=== PATIENT | female | born 1965 | race Caucasian/White ===

== ENCOUNTER 2019-02-25 15:45 | Outpatient (REF) | payer SELFPAY ==
[2019-02-25 22:19] LABS: TSH (W/Ref FT4) 0.68 uIU/mL (0.36-3.74)
== END 2019-02-25 16:05 ==
LOC: NCHCN 15:45
PROVIDERS: Visit Provider Nurse Practitioner Family
DX: R00.2 Palpitations (principal)
CPT/HCPCS: 84443

== ENCOUNTER 2020-01-28 20:47 | Outpatient (REF) | payer SELFPAY ==
[2020-01-28 20:54] LABS: Calculated LDL 84 mg/dL (<100); Cholesterol 191 mg/dL (<200); HDL Cholesterol 91 mg/dL (40-60); Triglyceride 81 mg/dL (<150)
[2020-01-28 21:36] LABS: Hemoglobin A1C 5.3 % (3.8-5.6)
== END 2020-01-28 21:07 ==
LOC: NCHCN 20:47
PROVIDERS: Visit Provider Nurse Practitioner Family
DX: E03.9 Hypothyroidism, unspecified (principal); N39.3 Stress incontinence (female) (male); F32.9 Major depressive disorder, single episode, unspecified; J31.0 Chronic rhinitis; G43.109 Migraine with aura, not intractable, without status migrainosus; R73.03 Prediabetes
CPT/HCPCS: 80061; 83036; 84443

== ENCOUNTER 2020-11-09 12:44 | Outpatient (REF) | payer SELFPAY ==
[2020-11-09 22:05] LABS: TSH (W/Ref FT4) 1.42 uIU/mL (0.36-3.74)
== END 2020-11-09 12:45 | disposition home or self-care (01) ==
LOC: NCHCN 12:44
DX: E03.9 Hypothyroidism, unspecified (principal); F32.9 Major depressive disorder, single episode, unspecified
CPT/HCPCS: 84443

== ENCOUNTER 2021-04-19 14:14 | Outpatient (REF) | payer OTHER, SELFPAY ==
[2021-04-21 10:53] LABS: COVID-19 RT-PCR UVMMC Result Negative (Negative)
== END 2021-04-19 14:15 | disposition home or self-care (01) ==
LOC: LBN 14:14
PROVIDERS: Visit Provider Physician Assistant Medical
DX: Z20.822 Contact with and (suspected) exposure to COVID-19 (principal); J06.9 Acute upper respiratory infection, unspecified
CPT/HCPCS: U0003

== ENCOUNTER 2021-06-09 00:54 | Outpatient (CLI) | payer OTHER, SELFPAY ==
--- NOTE | 2021-06-09 | DI.MAMMO_ITS ---
Exam(s) MAMMO SCREENING EXAM: MAMMO SCREENING CLINICAL HISTORY: SCREENING, Z12.31. TECHNIQUE: Bilateral full field digital CC and MLO mammographic images were obtained with 3D tomosyn thesis and utilizing computer aided detection (CAD). COMPARISON: Prior mammograms performed in 2016, that being the only prior mammogram in our PACS FINDINGS: The fibroglandular tissue pattern is again noted be moderately dense, this decreasing the sensitivity of the mammogram for finding hidden underlying lesions No new obvious masses nor malignant-appearing microcalcification groups in either breast There is no significant architectural distortion nor skin thickening-retraction. IMPRESSION: Dense bilateral fibroglandular tissue. No obvious radiographic evidence of malignancy. BI-RADS Category 1 - Negative Breast Density - Category C - Heterogeneously dense Breast density Category C or D implies that the patient has dense breast tissue. Dense breast tissue can make it harder to find cancer on a mammogram. Dense breast tissue is also associated with an incr eased risk of breast cancer. This information about the result of the mammogram report was provided to the patient to raise their awareness. Use this report when you speak with the patient about their risks for breast cancer, which includes their family history. At that time, you may recommend additional screening tests (Ultrasoun d or MRI) as these tests may add significant information. A negative radiographic report should not delay biopsy if a dominant or clinically suspicious mass is present. Up to ten percent of cancers are not identified on mammography. A negative report may reinforce clinical impression. Adenosis and dense breasts may obscure an underlying neoplasm. False positive reports average 6 to 10%. Patient will receive a letter notifying them of these results.
== END 2021-06-09 01:14 ==
PROVIDERS: Visit Provider Nurse Practitioner Family
DX: Z12.31 Encounter for screening mammogram for malignant neoplasm of breast (principal); R92.8 Other abnormal and inconclusive findings on diagnostic imaging of breast
CPT/HCPCS: 77063; 77067

== ENCOUNTER 2022-02-20 15:00 | Outpatient (REF) | payer OTHER, SELFPAY ==
[2022-02-20 15:07] LABS: HCT 40.3 % (36.0-46.0); HGB 13.1 g/dL (11.2-15.7); MCH 30.1 pg (27.0-33.0); MCHC 32.5 % (32.0-36.0); MCV 93 fL (80-95); MPV 11.1 fL (8.0-11.0); Platelet Count 299 10^3/uL (130-400); RBC 4.35 10^6/uL (3.93-5.22); RDW 12.3 % (11.7-14.6); RDW-SD 42.3 fL; WBC 4.74 10^3/uL (4.4-10.8)
[2022-02-20 15:29] LABS: ALT 23 U/L (14-59); AST 19 U/L (15-37); Albumin 3.7 g/dL (3.4-5.0); Alkaline Phosphatase 89 U/L (46-116); Anion Gap 11.1 mmol/L (3-11); BUN 17 mg/dL (7-18); Bilirubin, Total 0.2 mg/dL (0.2-1.0); CO2 25.9 mmol/L (21.0-32.0); CREATININE 1.1 mg/dL (0.55-1.02); Calcium 9.1 mg/dL (8.5-10.1); Chloride 107 mmol/L (98-107); Glucose 90 mg/dL (74-106); Potassium 4.3 mmol/L (3.5-5.1); Sodium 144 mmol/L (136-145); TSH (W/Ref FT4) 1.51 uIU/mL (0.36-3.74); Total Protein 7.2 g/dL (6.4-8.2)
== END 2022-02-20 15:01 | disposition home or self-care (01) ==
LOC: NCHCN 15:00
PROVIDERS: Visit Provider Nurse Practitioner Family
DX: Z00.00 Encounter for general adult medical examination without abnormal findings (principal); E03.9 Hypothyroidism, unspecified
CPT/HCPCS: 80053; 85027; 84443

== ENCOUNTER 2022-12-22 16:13 | Emergency (ER) | payer SELFPAY ==
[2022-12-22 16:19] VITALS: BP 116/68; PULSE 92; RESP 18; TEMP 37.1; O2SAT 99
--- NOTE | 2022-12-22 17:15 | DI.RAD_ITS ---
Exam(s) XR TIB/FIB RT EXAM: XR TIB/FIB RT CLINICAL HISTORY: pain. TECHNIQUE: 2D digital imaging was performed. COMPARISON: No exams were available for comparison FINDINGS: 3 views There is no evidence of tibial fracture. However, there is a fracture in the proximal fibula minimal angulation. IMPRESSION: Mildly angulated fracture in the proximal diaphysis of the fibula. DATA REPOSITORY: RADIATION DOSE DELIVERED:
[2022-12-22] MEDS: Acetaminophen 500 MG TAB 1000 MG PO (17:30)
--- NOTE | 2022-12-22 17:50 | DI.VRAD_ITS ---
PROCEDURE INFORMATION: Exam: XR Right Tibia and Fibula Exam date and time: 12/22/2022 17:41 Age: 57 years old Clinical indication: Other: Pain TECHNIQUE: Imaging protocol: Radiologic exam of the right tibia and fibula. Views: 2 views. COMPARISON: No relevant prior studies available. FINDINGS: Bones/joints: Acute fracture of the proximal fibular diaphysis with mild apex posterior angulation. Soft tissues: Unremarkable. IMPRESSION: Acute fracture of the proximal fibular diaphysis with mild apex posterior angulation. Dictated and Authenticated by: Jacque Tsai MD. Ordering:JAY Black MD
--- NOTE | 2022-12-22 17:55 | ED.GENADUL_ITS ---
Discharge Plan Disposition Patient Disposition: Home Condition: Stable Discharge Details Clinical Impression: Closed right fibular fracture Primary Care Provider: Ashley Vidal ED Provider: Wayne Colin Home Meds and New Rx's Prescriptions: Continued levothyroxine 88 MCG tablet 88 mcg PO DAILY Discharge Instructions Instructions: Leg Fracture (ED) Additional Instructions: You broke the bone in the leg called the fibula call orthopedics on Saturday to arrange follow up if you feel more ill, have severe worsening pain return to the emergency department Medical Decision Making 57 yo female comes in with right leg pain after she states she slipped while gardening and landed on the right lower leg. Denies hitting her head, no loc, no vomiting. She has full rom of the hip, knee and ankle. No knee or ankle tenderness nor any femur or hip tenderness. She is tender on the right lateral proximal calf, no visible deformity, no tenderness in the ankle with intact sensation and pulses. Suspect contusion vs sprain. She has full rom of all her joints so doubt achilles tendon or quadriceps rupture xray confirms fracture of proximal fibula, placed in posterior leg splint, will have her f/u with ortho, return precautions given Differential Diagnosis Differential Diagnosis: fracture, contusion Imaging Data Radiologic Study: Attestation: I personally reviewed and interpreted this imaging study as follows: Imaging: X-Ray Radiologist's impression: Exam: XR Right Tibia and Fibula Exam date and time: 12/22/2022 17:41 Age: 57 years old Clinical indication: Other: Pain TECHNIQUE: Imaging protocol: Radiologic exam of the right tibia and fibula. Views: 2 views. COMPARISON: No relevant prior studies available. FINDINGS: Bones/joints: Acute fracture of the proximal fibular diaphysis with mild apex posterior angulation. Soft tissues: Unremarkable. IMPRESSION: Acute fracture of the proximal fibular diaphysis with mild apex posterior angulation. HPI General Date/Time Provider Initiated Documentation: 12/22/22 16:32 . Limitations to Documentation: no limitations . Information obtained by: patient . History of Present Illness 57 year old F presents to the emergency department with the chief complaint of right leg pain, described as moderate, Quality is described as aching, Patient started experiencing this hour(s) (2) and it has been constant. No relieving factors improve symptom(s), and Rest improves symptom(s), Movement worsens symptoms . Patient notes no other symptoms.. Patient did receive the following treatments prior to arrival, none Related Data Home Medications Medication Instructions Recorded Confirmed levothyroxine 88 mcg tablet 88 mcg PO DAILY 09/24/15 09/24/15 Allergies Allergy/AdvReac Type Severity Reaction Status Date / Time No Known Allergies Allergy Unverified 01/31/18 13:48 General Stated Complaint: Orthopedic KALI: 3 Review of Systems All systems reviewed & are unremarkable except as noted in HPI and below Constitutional Constitutional: Denies chills, Denies fever(s) and Denies weakness Cardiovascular Cardiovascular: Denies chest pain and Denies dyspnea Respiratory Respiratory: Denies cough and Denies dyspnea Gastrointestinal Gastrointestinal: Denies abdominal pain, Denies nausea and Denies vomiting Musculoskeletal Musculoskeletal: Denies joint swelling Neurologic Neurologic: Denies weakness PFSH All Active Problems (Updated 12/22/22 @ 18:27 by Wayne Colin MD) Closed right fibular fracture (Acute) Medical History (Updated 12/22/22 @ 18:27 by Wayne Colin MD) Depression Hypothyroid Family History (Updated 01/31/18 @ 14:54 by Elham Briones) Other Family hx of colon cancer Social History Smoking/Tobacco Use Status: Former Tobacco Use Smoking risk assessment performed?: Yes Drug use: Never Exam Const General: no acute distress Orientation: alert HENMT Head: normal to inspection Ears: external ears normal General nose exam: external nose normal Mouth: moist mucous membranes Eyes General: appearance normal, both eyes and all related structures Neck Neck: normal visual inspection Resp Effort & Inspection: normal respiratory effort and able to speak in complete sentences Cardio Rate: regular rate Skin General skin exam: no rashes or lesions noted Neuro General: patient alert and patient oriented x3 Extrem General: normal to inspection, full ROM and capillary refill normal Psych Mental Status: mental status grossly normal Course Vital Signs Vital signs: Vital Signs Temperature 37.1 C 12/22/22 16:19 Pulse 92 H 12/22/22 16:19 Respiratory Rate 18 12/22/22 16:19 Blood Pressure 116/68 12/22/22 16:19 Pulse Oximetry 99 12/22/22 16:19 Temperature 37.1 C 12/22/22 16:19 Temperature Source Skin 12/22/22 16:19 Pulse 92 H 12/22/22 16:19 Respiratory Rate 18 12/22/22 16:19 Blood Pressure 116/68 12/22/22 16:19 Blood Pressure Position Sitting 12/22/22 16:19 Pulse Oximetry 99 12/22/22 16:19 Oxygen Delivery Method Room Air 12/22/22 16:19 Oxygen Flow Rate 0 12/22/22 16:19 Pain Level 7 12/22/22 17:30
[2022-12-22 18:38] VITALS: BP 116/63; PULSE 82; TEMP 36.6; O2SAT 100
== END 2022-12-22 19:01 | disposition home or self-care (01) ==
PROVIDERS: Emergency Provider Emergency Medicine; PCP Nurse Practitioner Family
DX: S82.831A Other fracture of upper and lower end of right fibula, initial encounter for closed fracture (principal); W01.0XXA Fall on same level from slipping, tripping and stumbling without subsequent striking against object, initial encounter
CPT/HCPCS: 99283; 73590

== ENCOUNTER 2023-01-08 11:27 | Outpatient (CLI) | payer SELFPAY ==
--- NOTE | 2023-01-08 10:45 | DI.RAD_ITS ---
Exam(s) XR KNEE RT 2V AP,LAT EXAM: XR KNEE RT 2V AP,LAT CLINICAL HISTORY: F/U FRACTURE. TECHNIQUE: 2D digital imaging was performed. COMPARISON: CR,XR XR TIB/FIB RT from 12/22/2022 FINDINGS: Two views The fracture in the proximal diaphysis of the fibula is again noted. It exhibits mild angulation, sl ightly more so than previous. No other fractures identified. No knee joint effusion. Tibial platea u unremarkable IMPRESSION: DATA REPOSITORY: RADIATION DOSE DELIVERED:
== END 2023-01-08 11:28 | disposition home or self-care (01) ==
LOC: DIORS 11:28
PROVIDERS: PCP Nurse Practitioner Family; Referring Provider Nurse Practitioner Family; Visit Provider Student in an Organized Health Care Education/Training Program
DX: S82.831D Other fracture of upper and lower end of right fibula, subsequent encounter for closed fracture with routine healing (principal); X58.XXXD Exposure to other specified factors, subsequent encounter
CPT/HCPCS: 73560

== ENCOUNTER 2023-02-26 15:22 | Outpatient (CLI) | payer SELFPAY ==
--- NOTE | 2023-02-26 15:00 | DI.RAD_ITS ---
Exam(s) XR KNEE RT 2V AP,LAT EXAM: XR KNEE RT 2V AP,LAT INDICATION: f/u PROX R FIB FX. COMPARISON: CR XR KNEE RT 2V AP,LAT from 01/08/2023 TECHNIQUE: 2D digital imaging was performed. Two views. FINDINGS: There has been no change in the alignment of the proximal fibular fracture. There is increased callu s formation around the fracture site. No new abnormalities are seen. DATA REPOSITORY: RADIATION DOSE DELIVERED:
== END 2023-02-26 15:23 | disposition home or self-care (01) ==
LOC: DIORS 15:22
PROVIDERS: PCP Nurse Practitioner Family; Referring Provider Nurse Practitioner Family; Visit Provider Student in an Organized Health Care Education/Training Program
DX: S82.831D Other fracture of upper and lower end of right fibula, subsequent encounter for closed fracture with routine healing (principal); X58.XXXD Exposure to other specified factors, subsequent encounter
CPT/HCPCS: 73560

== ENCOUNTER 2024-06-16 15:51 | Outpatient (REF) | payer SELFPAY ==
--- OUTSIDE RECORDS SUMMARY | 2024-06-16 15:55 | XMS_ITS | Encounter Summary ---
Author Organization [facility] Address [address] [place] [address] Care Team Providers Care Video Game Technician Name Role Phone Unknown, Provider Primary Care Provider Unava ilable Encounter Details Date Type Department Care Team (Late st Contact Info) Description 01/11/2009 Orders Only [facility] Laboratory Services - [facility] ([facility] [address] [place] [address] Dominique Cutler, CLINICAL TRANSPLANT COORDINATOR Social History Tobacco Use Types Packs/Day Years Used Date Smoking Tobacco: Never Assessed Comments Unknown Sex and Gender Information Value Date Recorded Sex Assigned at Not on file Legal Sex Female 18:45 EST Gender Identity Not on file Sexual Orientation Not on file documented as of this encounter Plan of Treatment Not on file documented as of this encounter Procedures Procedure Name Priority Date/Time Associated Diagnosis Comments HPV DETECTION, HIGH RISK TYPES Routine 01/11/2009 14:33 EDT CYTOPATHOLOGY Routine 01/11/2009 0:00 EDT documented in this encounter Results * HUMAN PAPILLOMA VIRUS DNA TEST (01/11/2009 14:33 EDT) Specimen Description Cervix, ThinPrep vial [facility] Result Negative for HPV types 16, 18, 31, 33, 35, 39, 45, 51, 52, 56, 58, 59, and 68. [facility] Report Status Final 01/20/2009 [facility] 01/11/2009 14:3 3 EDT 01/17/2009 14:33 EDT Dominique Cutler NP MICROBIOLOGY - GENERAL ORDERA BLES Final Result Performing Organization Address [facility]/State/ZIP Co de Phone Number [facility] [address] [place] [address] * CYTOPATHOLOGY (01/11/2009 0:00 EDT) Pathology Report: CYTOPATHOLOGY REPORT ? Reports generated via electronic interface contain original data; ? however they are lacking the format of the original report. ? Caution should be taken when reading/interpreti ng unformatted reports. ? Name: ? CHAMP SANDOVAL ? Accession #: ? [id number] ? : ? 1965 (Age: 43) ??F ?Collect Date: ? 01/11/2009 ? Location: ? [facility] ? Receive Date: ? 01/12/2009 ? Provider: ?DOMINIQUE M MORENA CLINICAL TRANSPLANT COORDINATOR ? Copy to: ? Specimen/Source: ?Pap Test, Cervix/Endocervix, ThinPrep Imaging System ? with manual evaluation ? Last Menstrual Period: ? 6/11/09 ? Other: ? HPVDX - HPV testing requested regardless of diagnosis on current ThinPrep Pap ?? test. ? SPECIMEN ADEQUACY ? Satisfactory for Evaluation ? - transformation zone component present ? - scant squamous epithelial component ? GENERAL CATEGORIZATION ? Negative for Intraepithelial Lesion or Malignancy ? Document reviewed and electronically signed by: ? Leeann Bharat, CT(ASCP) ? Report Date: ??01/17/2009 11:14 ? End of Report ? [facility] 01/11/2009 01/12/2009 us Dominique Cutler CLINICAL TRANSPLANT COORDINATOR PATHOLOGY ORDERABLES Final Re sult [facility] [address] [place] [address] documented in this encounter Visit Diagnoses Not on filedocumented in this encounter Care Teams Video Game Technician Relationship Specialty Start Date End Date Unknown, Provider, PCP - General 01/12/09 02/24/09 documented as of this encounter
--- OUTSIDE RECORDS SUMMARY | 2024-06-16 15:55 | XMS_ITS | Encounter Summary ---
Author Organization [facility] Address [address] [place] [address] Care Team Providers Care Search Coordinator Name Role Phone Jas Montiel MD Primary Care Provider [phone] Encounter Details Date Type Department Care Team (Late st Contact Info) Description 04/20/2021 Lab Requisition [facility] Pathology & Laboratory Medicine - [address] [address] Outr Resulting Lab, Provider Social History Tobacco Use Types Packs/Day Years [...] Procedure Name Priority Date/Time Associated Diagnosis Comments ZZCOVID-19 TEST [facility] PCR Today 04/19/2021 13:25 EDT COVID-19 TESTING Routine 04/19/2021 13:2 5 EDT documented in this encounter Results * COVID-19 TEST [facility] PCR (04/19/2021 13:25 EDT) Swab ENTIRE NASOPHARYNX / Unknown 04/19/2021 13:25 EDT 04/20/2021 15:46 EDT us Provider Outr Resulting Lab MICROBIOLOGY - GENER AL ORDERABLES Final Result [facility] [address] [place] [address] * COVID-19 TESTING (04/19/2021 13:25 EDT) COVID-19 rt-PCR Result Negative Negative 04/21/2021 10:47 EDT [facility] Comment: This test has not been FDA cleared or approved. This test has been authorized by FDA under an EUA for use by authorized laboratories. This test has been authorized only for detection of nucleic acid from 2019-nCoV, not for any other viruses or pathogens. This test is only authorized for the duration of the declaration that circumstances exist justifying the authorization of emergency use of in vitro diagnostic tests for detection and/or diagnosis of 2019-nCoV under section 564(b)(1) of Act, 21 U.S.C ?? 360bbb-3(b) (1), unless the authorization is terminated or revoked sooner. Negative results do not preclude 2019-nCoV infection and should not be used as the sole basis for treatment or other patient management decisions. Negative results must be combined with clinical observations, patient history, and epidemiological information. Testing was performed using the boo SARS-CoV-2 assay ([employer] on the Boo 6800 System Performing Lab Boo 6800 [facility] 04/21/2021 10:47 EDT [facility] Swab 04/19/2021 13:2 5 EDT 04/20/2021 15:46 EDT us Provider Outr Resulting Lab MICROBIOLOGY - GENER AL ORDERABLES Final Result [facility] [address] [place] [address] documented in this encounter Visit Diagnoses Not on filedocumented in this encounter Care Teams Search Coordinator Relationship Specialty Start Date End Date Jas Montiel MD [address] [place] [address] PCP - General 02/25/09 documented as of this encounter
--- OUTSIDE RECORDS SUMMARY | 2024-06-16 15:55 | XMS_ITS | Encounter Summary ---
Author Organization [facility] Address [address] [place] [address] Care Team Providers Care Ice Scraper Name Role Phone Unknown, Provider Primary Care Provider Unava ilable Encounter Details Date Type Department Care Team (Late st Contact Info) Description 02/23/2009 Orders Only [facility] Laboratory Services [facility] ([facility]) [address] [place] [address] Dominique Cutler, WATERSHED MANAGER Social History Tobacco Use Types Packs/Day Years [...] Procedure Name Priority Date/Time Associated Diagnosis Comments SURGICAL PATHOLOGY Routine 02/23/2009 0:00 EDT documented in this encounter Results * SURGICAL PATHOLOGY (02/23/2009 0:00 EDT) Pathology Report: SURGICAL PATHOLOGY REPORT ? Reports generated via electronic interface contain original data; ? however they are lacking the format of the original report. ? Caution should be taken when reading/interpreti ng unformatted reports. ? Name: ? JAIME, CHAMP ? Accession #: ? [id number] ? : ? 1965 (Age: 43) ??F ? Collect Date: ? 02/23/2009 ? Location: ? [facility] ? Receive Date: ? 02/24/2009 ? Provider: DOMINIQUE M MORENA WATERSHED MANAGER ? Copy to: JESSE ONEILL MD ? Final Pathologic Diagnosis: ? Endometrium, biopsy: ? - Secretory endometrium. ? Document reviewed and electronically signed by: ? TAMIKA MOUNT MD ? Report ??Date: 02/28/2009 15:12 ? By the signature above, the attending physician certifies that he/she has ? personally conducted a gross and/or microscopic examination of the described ? specimens and rendered or confirmed the above diagnosis. ? Specimen(s) Received: ? Endometrial bx ? Clinical History: ? Dysfunctional uterine bleeding; LMP: 01/03/09 ? Gross Description: ? Received in formalin labelled Jaime, Ale and endometrial bx are 2 ?? cc of gallagher-pink tissue fragments admixed with blood tinged mucus. ??The specimen ?? is submitted entirely in one cassette. ??(JOSE Crystal)/tikan ? End of Report ? [facility] 02/23/2009 02/24/2009 9:0 5 EDT us Dominique Cutler WATERSHED MANAGER PATHOLOGY ORDERABLES Final Re sult [facility] [address] [place] [address] documented in this encounter Visit Diagnoses Not on filedocumented in this encounter Care Teams Ice Scraper Relationship Specialty Start Date End Date Unknown, Provider, PCP - General 01/12/09 02/24/09 documented as of this encounter
--- OUTSIDE RECORDS SUMMARY | 2024-06-16 15:55 | XMS_ITS | Referral Summary ---
Author Organization [facility] Address [address] [place] [address] Care Team Providers Care Training Generalist Name Role Phone Jas Montiel MD Primary Care Provider [phone] Social History Tobacco Use Types Packs/Day Years Used Date Smoking Tobacco: Never Assessed Comments Unknown Sex and Gender Information Value Date Recorded Sex Assigned at Not on file Legal Sex Female 18:45 EST Gender Identity Not on file Sexual Orientation Not on file Plan of Treatment Not on file Care Teams Training Generalist Relationship Specialty Start Date End Date Jas Montiel MD [address] [place] [address] PCP - General 02/25/09
--- OUTSIDE RECORDS SUMMARY | 2024-06-16 15:55 | XMS_ITS | Encounter Summary ---
Author Organization [facility] Address [address] [place] [address] Care Team Providers Care Ruby On Rails Software Developer Name Role Phone Jas Montiel MD Primary Care Provider [phone] Encounter Details Date Type Department Care Team ([facility] st Contact Info) Description 01/31/2018 Results Only [facility] [phone] Courtney Briones MD [address] [place] [address] Social History Tobacco Use Types Packs/Day Years [...] Procedure Name Priority Date/Time Associated Diagnosis Comments PAP TEST- RESULT ONLY Routine 01/31/2018 0:00 EDT documented in this encounter Results * PAP TEST- RESULT ONLY (01/31/2018 0:00 EDT) Pathology Report: CYTOPATHOLOGY REPORT Reports generated via electronic interface contain original data; however they are lacking the format of the original report. Caution should be taken when reading/interpreti ng unformatted reports. Name: ? EDSON SANDOVAL ? Accession #: ? [id number] ? : ? 1965 (Age: 52) ??F ?Collect Date: ? 01/31/2018 ? Location: ? [facility] ? Receive Date: ? 02/03/2018 ? Provider: COURTNEY BRIONES MD Copy to: TAMIKA OLSON MD ? Final Report SPECIMEN ADEQUACY ? Satisfactory for Evaluation - transformation zone component present GENERAL CATEGORIZATION ? Negative for Intraepithelial Lesion or Malignancy ?? Menstrual/Pregnanc y Status: ??Post Menopausal Specimen/Source: ??Pap Test, Cervix, ThinPrep Imaging System with manual evaluation Document reviewed and electronically signed by: ? Maya Garcia, CT(ASCP) ? Report ??Date: 02/11/2018 10:53 HPV with Pap Test ? Date Ordered: ? 02/11/2018 ? Status: ?? Signed Out ?Date Complete: ? 02/13/2018 ? By: ??System Interface ? Date Reported: ? 02/13/2018 ? Interpretation RESULT: Negative for HPV. No E6 or E7 mRNA is detected from HPV types 16,18,31,33,35, 39,45,51,52,56,58, 59,66, and 68 by soft shoe dancer mediated amplification. Comments Document reviewed and electronically signed by: ? System Interface ? Report date: 02/13/2018 By the signature above, the attending physician certifies that he/she has personally conducted a gross and/or microscopic examination of the described specimens and rendered or confirmed the above diagnosis. End of Report [facility] 01/31/2018 02/03/2018 us Courtney Brioens MD PATHOLOGY ORDERABLES Final Resul t [facility] [address] [place] [address] documented in this encounter Visit Diagnoses Not on filedocumented in this encounter Care Teams Ruby On Rails Software Developer Relationship Specialty Start Date End Date Jas Montiel MD [address] [place] [address] PCP - General 02/25/09 documented as of this encounter
--- OUTSIDE RECORDS SUMMARY | 2024-06-16 15:55 | XMS_ITS | Clinical Summary ---
Author Organization [facility] Address [address] [place] [address] Care Team Providers Care Bag Filler Name Role Phone Jas Montiel MD Primary Care Provider [phone] Social History Tobacco Use Types Packs/Day Years Used Date Smoking Tobacco: Never Assessed Comments Unknown Sex and Gender Information Value Date Recorded Sex Assigned at Not on file Legal Sex Female 18:45 EST Gender Identity Not on file Sexual Orientation Not on file Plan of Treatment Health Maintenance Due Date Last Done Comments Hepatitis C Screen 1965 Hepatitis B Vaccine (1 of 3 - 19+ 3-dose series) 06/26 COVID-19 Vaccine ( season) 2024 Care Teams Bag Filler Relationship Specialty Start Date End Date Jas Montiel MD [address] [place] [address] PCP - General 02/25/09
[2024-06-16 22:00] LABS: TSH (W/Ref FT4) 4.67 uIU/mL (0.36-3.74)
[2024-06-16 22:26] LABS: FREE T4 0.98 ng/dL (0.76-1.46)
== END 2024-06-16 15:52 | disposition home or self-care (01) ==
LOC: NCHCN 15:51
PROVIDERS: PCP Nurse Practitioner Family; Visit Provider Nurse Practitioner Family
DX: E03.9 Hypothyroidism, unspecified (principal)
CPT/HCPCS: 84439; 84443

== ENCOUNTER 2024-11-10 17:34 | Outpatient (REF) | payer OTHER, SELFPAY ==
--- NOTE | 2024-11-10 16:15 | PAPFT_PTH ---
PATIENT: Ale Brown LOC: [facility]#:[id number] AGE/SX: 59/F ROOM: RE11/10/[address]: Ashley Vidal : 1965 BED: DIS: 11/10/2024 SPEC #: [id number] RECD: 11/11/24 12:56 STATUS: CHRIS REQ #: [id number] SILAS: 11/10/24 16:[address]: Ashley Vidal DEPT: [facility] Cytology RECD BY: Josie Alejo Tissues: 1 - CX/ENDOCX FOR PAP SMEARS Procedures: PAP THIN PREP/[facility] Screening HPV DNA PROBE Comments: [id number] (HPV 16 & 18/45)
== END 2024-11-10 17:35 | disposition home or self-care (01) ==
LOC: NCHCN 17:34
PROVIDERS: PCP Nurse Practitioner Family; Visit Provider Nurse Practitioner Family
DX: Z12.4 Encounter for screening for malignant neoplasm of cervix (principal)
CPT/HCPCS: 88142; 87624

== ENCOUNTER 2024-11-16 19:07 | Outpatient (REF) | payer OTHER, SELFPAY ==
[2024-11-16 15:03] LABS: HGB 13.7 g/dL (11.2-15.7); MCH 29.6 pg (27.0-33.0); MCHC 31.9 % (32.0-36.0); MCV 93 fL (80-95); MPV 11.5 fL (8.0-11.0); Platelet Count 297 10^3/uL (130-400); RBC 4.63 10^6/uL (3.93-5.22); RDW 11.9 % (11.7-14.6); RDW-SD 40.5 fL; WBC 5.55 10^3/uL (4.4-10.8)
[2024-11-16 15:44] LABS: ALT 24 U/L (14-59); AST 17 U/L (15-37); Albumin 3.9 g/dL (3.4-5.0); Alkaline Phosphatase 81 U/L (46-116); Anion Gap 9.6 mmol/L (3-11); BUN 21 mg/dL (7-18); Bilirubin, Total 0.5 mg/dL (0.2-1.0); CO2 25.4 mmol/L (21.0-32.0); CREATININE 1.1 mg/dL (0.55-1.02); Calcium 9.6 mg/dL (8.5-10.1); Calculated LDL 93 mg/dL (<100); Chloride 107 mmol/L (98-107); Cholesterol 191 mg/dL (<200); Estimated GFR 57.52 (mL/min/1.73m2); Glucose 112 mg/dL (74-106); HDL Cholesterol 77 mg/dL (>or=50); Potassium 4.5 mmol/L (3.5-5.1); Sodium 142 mmol/L (136-145); TSH (W/Ref FT4) 2.74 uIU/mL (0.36-3.74); Total Protein 7.1 g/dL (6.4-8.2); Triglyceride 109 mg/dL (<150)
== END 2024-11-16 19:08 | disposition home or self-care (01) ==
LOC: NCHCN 19:07
PROVIDERS: PCP Nurse Practitioner Family; Visit Provider Nurse Practitioner Family
DX: Z00.00 Encounter for general adult medical examination without abnormal findings (principal); E03.9 Hypothyroidism, unspecified
CPT/HCPCS: 80053; 80061; 85027; 84443

== ENCOUNTER 2024-12-04 00:43 | Outpatient (CLI) | payer OTHER, SELFPAY ==
--- NOTE | 2024-12-04 | DI.MAMMO_ITS ---
Exam(s) MAMMO SCREENING EXAM: MAMMO SCREENING CLINICAL HISTORY: SCREENING Z12.31. TECHNIQUE: Bilateral full field digital CC and MLO mammographic images were obtained with 3D tomosyn thesis and utilizing computer aided detection (CAD). COMPARISON: Prior mammograms dating back to 2016 were reviewed. FINDINGS: The fibroglandular tissue pattern is again noted be moderately dense, this somewhat decreasing the se nsitivity of the mammogram for finding hidden underlying lesions. No new right breast findings. Posteriorly in the left breast there is an asymmetric density measuring 11 x 7 mm and located 8 cm in from the nipple on the MLO view and 7 cm in from the nipple on the CC view. This was less evident o n the 2020 images but appears to have been evident on 2016 images. It may be slightly larger than pr evious. There are no malignant-appearing microcalcification groups in this region or elsewhere in either [address]. There is no significant architectural distortion nor skin thickening-retraction. IMPRESSION: 1. No radiographic evidence of malignancy in right breast. 2. Asymmetric density-possible nodule posteriorly in the left breast as described above. Spot compre ssion view and ultrasound recommended. BI-RADS Category 0 - Incomplete: Need additional imaging evaluation Breast Density - Category C - The breast are heterogeneously dense, which may obscure small masses. Breast density Category C or D implies that the patient has dense breast tissue. Dense breast tissue can make it harder to find cancer on a mammogram. Dense breast tissue is also associated with an incr eased risk of breast cancer. This information about the result of the mammogram report was provided to the patient to raise their awareness. Use this report when you speak with the patient about their risks for breast cancer, which includes their family history. At that time, you may recommend additional screening tests (Ultrasoun d or MRI) as these tests may add significant information. A negative radiographic report should not delay biopsy if a dominant or clinically suspicious mass is present. Up to ten percent of cancers are not identified on mammography. A negative report may reinforce clinical impression. Adenosis and dense breasts may obscure an underlying neoplasm. False positive reports average 6 to 10%. Patient will receive a letter notifying them of these results.
== END 2024-12-04 01:03 ==
LOC: DI 00:43
PROVIDERS: PCP Nurse Practitioner Family; Visit Provider Nurse Practitioner Family
DX: Z12.31 Encounter for screening mammogram for malignant neoplasm of breast (principal); R92.333 Mammographic heterogeneous density, bilateral breasts
CPT/HCPCS: 77063; 77067

== ENCOUNTER 2024-12-14 02:34 | Outpatient (CLI) | payer OTHER, SELFPAY ==
--- NOTE | 2024-12-14 | DI.MAMMO_ITS ---
Exam(s) MG MAMMO SCREEN CALL BACK UNI US BREAST LT COMPLETE EXAM: MG MAMMO SCREEN CALL BACK UNI CLINICAL HISTORY: R92.8 ABN mammo, Asymmetric density-possible nodule posteriorly LT breast,. TECHNIQUE: Craniocaudal and mediolateral oblique spot compression digital Mammography views of the l eftbreast with Tomosynthesis and left breast ultrasound. COMPARISON: MG Screening Bilat Mammo from 12/15/2015 MG MG MAMMO SCREENING from 06/09/2021 MG MG MAMMO SCREENING from 12/04/2024 US US BREAST LT COMPLETE from 12/14/2024 FINDINGS: Mammography/Tomosynthesis: Masses: Persistent ill-defined 1 cm mass in the posterior upper inner quadrant. Architectural Distortion: None seen. Microcalcifictions: No suspicious pleomorphic-type are seen. Skin Thickening/Nipple Retraction: None. Left breast US: Echotexture: Normal appearance of the glandular tissue. Shadowing: No suspicious foci. Cyst: None. Solid lesions: 10 x 10 by 11 millimeter hypoechoic ill-defined mass with posterior shadowing located in the 10 o'clock position 6 cm from the nipple. Ductal dilation: None. IMPRESSION: 1. Suspicious mass in the posterior upper inner quadrant of the left breast. 2. Biopsy recommended. 3. The findings were discussed with the patient on the date of the examination. Findings were called to Cecilia Jensen RN. BI-RADS Category 4 - Suspicious Abnormality: Biopsy should be considered Breast Density - Category C - The breast are heterogeneously dense, which may obscure small masses. Breast density Category C or D implies that the patient has dense breast tissue. Dense breast tissue can make it harder to find cancer on a mammogram. Dense breast tissue is also associated with an incr eased risk of breast cancer. This information about the result of the mammogram report was provided to the patient to raise their awareness. Use this report when you speak with the patient about their risks for breast cancer, which includes their family history. At that time, you may recommend additional screening tests (Ultrasoun d or MRI) as these tests may add significant information. A negative radiographic report should not delay biopsy if a dominant or clinically suspicious mass is present. Up to ten percent of cancers are not identified on mammography. A negative report may reinforce clinical impression. Adenosis and dense breasts may obscure an underlying neoplasm. False positive reports average 6 to 10%. Patient will receive a letter notifying them of these results.
== END 2024-12-14 02:54 ==
LOC: DI 02:34
PROVIDERS: PCP Nurse Practitioner Family; Visit Provider Nurse Practitioner Family
DX: Z12.31 Encounter for screening mammogram for malignant neoplasm of breast (principal); N63.22 Unspecified lump in the left breast, upper inner quadrant
CPT/HCPCS: 76642; 77063; 77067

== ENCOUNTER 2025-02-22 06:59 | Day surgery (SDC) | payer OTHER, SELFPAY ==
--- NOTE | 2025-02-21 12:30 | W.PM.DSUDISC ---
Date of service: 02/22/25 Discharge Plan Disposition Patient Disposition: Home Condition: Good Discharge Details Reason For Visit: Screening colonoscopy Attending Provider: Bob Caal Primary Care Provider: Ashley Vidal Home Meds and New Rx's Prescriptions: Continued levothyroxine 88 mcg tablet 100 mcg PO DAILY Discontinued bisacodyl [Dulcolax (bisacodyl)] 5 mg tablet,delayed release (DR/EC) 5 mg PO ONCE Qty: 4 0RF Rx Instructions: Take per colonoscopy instructions provided by ordering providers office polyethylene glycol 3350 17 gram/dose powder 17 g PO ONCE Qty: 238 0RF Rx Instructions: Take per colonoscopy instructions provided by ordering providers office Discharge Instructions Instructions: Colon polyps, Diverticulosis Additional Instructions: Ale, it was very nice meeting you today, and I hope you make a quick recovery from the procedure. Things went very smoothly. I did find, and remove 1 bit of tissue today that I suspect might be a polyp. This will be sent to the pathologist for their review. Once I know the nature of this, my office will be in touch with recommendations for future colonoscopies. Incidentally, you also have just a little bit of diverticulosis. This occurs as we age, in the muscular layer of the colon wall weakens. I generally recommend increased dietary fiber, avoidance of constipation, and maintenance of hydration with plenty of water during the course of the day. Honestly these are things that we all should be doing. I will attach a little bit of information here about diverticulosis as well as colon polyps. If you need anything, or have any questions at all, please do not hesitate to ask. 1. If tolerated, consume a soft, low fiber diet for 1-2 days. 2[address] Do not drive, drink alcohol, operate machinery, make critical decisions, or do activities that require coordination or balance for 24 hours. 3. Because air was put into your colon during the procedure, expelling air from your rectum (passing gas or farting) is normal. 4. You may not have a bowel movement for 1-3 days because of the colonoscopy prep. This is normal. 5. Go directly to the emergency room if you notice any of the following: Develop chills (warm to touch), or if you have a thermometer and your temperature is above 101 Difficulty breathing or difficultly swallowing Persistent vomiting Severe abdominal pain, other than gas cramps Severe chest pain Black, tarry stools Any bleeding ? exceeding one tablespoon 6. Call your physician if the site where your intravenous was started becomes red, swollen, painful, and warm to touch. 7. Your physician has reviewed your pre-procedure medications. Please continue to take those medications as previously ordered. You will be given specific information/education regarding any changes to your medications before leaving. Stand Alone Forms: Anesthesia Discharge InstJeri Lopez (DSU) Activity:: Activity as Tolerated Diet:: As Tolerated Discharge Orders Discharge Orders: Discharge Order (Routine); Ordered 02/21/25 Ordered By: Bob Caal DS: Diagnosis Discharge Diagnosis (1) Encounter for screening colonoscopy: Status: Acute Asessment and Plan: Follow-up on polypectomy results
--- NOTE | 2025-02-21 12:31 | COLE_ITS ---
Date of service: 02/22/25 Time of Service: 09:29 Colonoscopy Report Date of procedure: 02/22/25 Pre-op diagnosis general: Screening colonoscopy Post-op diagnosis procedure note: other (Colon polyps, diverticulosis) Procedure: Colonoscopy with polypectomy Surgeon: Bob Caal Anesthesia Type: General:No Airway Estimated blood loss (mL): 5 Pathology: other (0.5 cm flat polyp at 65 cm) Complications: None Disposition: same day Indications: Ale is a 59-year-old woman who needs her next screening colonoscopy Prep: Miralax/Dulcolax Procedure Start Time: 08:57 Procedure End Time: 09:12 Retraction Time: 10 Findings: Sigmoid diverticulosis, 0.5 cm flat polyp at 65 cm Procedure Description: After the induction of anesthesia, and with Ale in left lateral decubitus position, I began by performing an external anorectal exam.? Perineum and skin were normal, as was the anal verge.? There was no evidence of external hemorrhoids.? Next, I performed a digital rectal exam.? I did not appreciate any abnormal findings.? Next, I advanced a colonoscope into the rectal vault.? I performed retroflexion.? This appeared normal.? Using insufflation, I then advanced the colonoscope beyond the rectal folds and into the sigmoid colon before advancing towards the cecum.? The scope was noted to be in the cecum by identification of the ileocecal valve and appendiceal orifice.? I then began withdrawing the colonoscope using repeated irrigation as necessary for full evaluation of the colonic mucosa. ?Around 65 cm from the anal verge was a 0.5 cm flat polyp. This was removed in piecemeal with cold forceps. There was minimal bleeding. There was some sigmoid diverticulosis. Once the scope was withdrawn to the level of the rectum, great care was taken to examine portions of the rectal folds.? Finally, the scope was withdrawn and the patient was brought to the same-day surgery recovery unit as the anesthetic wore off. ?The findings and instructions were shared with the patient prior to discharge. [place] Bowel Prep [place] Bowel Prep Right Colon: 3 Left Colon: 3 Transverse Colon: 3 Total Score: 9
[2025-02-22 07:16] VITALS: BP 120/74; PULSE 75; RESP 20; TEMP 36.1; O2SAT 99
[2025-02-22] MEDS: Lactated Ringers 1,000 ML 80 ML IV (07:35)
--- NOTE | 2025-02-22 08:29 | W.ANESPRE ---
General Info Date of Service Date Performed: 02/22/25 Height: 5 ft 7 in Weight: 69.7 kg Body Mass Index (BMI): 24.0 Surgical Procedure: Operation Date: 02/22/25 08:35 Proposed Procedure Side Surgeon p Javier Caal MD Meds Allergies and Home Medications Allergies Allergy/AdvReac Type Severity Reaction Status Date / Time paroxetine (From Paxil) AdvReac Intermediate brain fog, Verified 02/22/25 07:15 ill feeling Home Medication ?Medication ?Instructions ?Recorded levothyroxine 88 mcg tablet 100 mcg PO DAILY 01/01/23 Current Visit Medications: Current Medications Generic Name Dose Route Start Last Admin Trade Name Freq PRN Reason Stop Dose Admin Ringer's Solution 1,000 mls @ 80 mls/hr 02/22/25 06:00 02/22/25 07:35 IV 02/22/25 23:59 80 mls/hr INFUSION BARBARA Administration IV Miscellaneous Supplies 1 each 02/22/25 06:00 Iv Access IV 02/22/25 23:59 DIRECTED BARBARA Ondansetron HCl 4 mg 02/21/25 12:31 Ondansetron 4 Mg/2 Ml Vial IVP 03/23/25 12:30 Q4H PRN PRN Nausea / Vomiting Sodium Chloride 0 ml 02/22/25 06:00 Normal Saline Flush 10 Ml Syr IV 02/22/25 23:59 PRN PRN Sodium Chloride 0 ml 02/22/25 06:00 Normal Saline 10 Ml Vial IJ 02/22/25 23:59 DIRECTED PRN Sterile Water 0 ml 02/22/25 06:00 Water,Injection,Sterile 10 Ml Vial IJ 02/22/25 23:59 DIRECTED PRN PFSH Active Problems Active Problems: Problem Status Onset Code Encounter for screening colonoscopy Acute Z12.11 Fracture of proximal end of right fibula Acute ~12/22/22 S82.831A Medical History Medical History Genuine stress incontinence, female pt.denies Chronic rhinitis Migraine with aura Generalized anxiety disorder Hypothyroid Depression Tobacco Smoking/Tobacco Use Status: Former Tobacco Use Alcohol Alcohol Intake: never Substance Use Substance use: Never Substance use type: does not use Vital Signs and Lab Results Vital Signs Most Recent Vital Signs in EMR: Most Recent Vital Signs Temp Pulse Resp BP Pulse Ox 36.1 C L 75 20 120/74 99 02/22/25 07:16 02/22/25 07:16 02/22/25 07:16 02/22/25 07:16 02/22/25 07:16 Anesthesia Assessment and Plan Anesthesia History Personal History: No History of Anesthesia Complications Family History: No Family History of Anesthesia Complications Exercise Tolerance Exercise Tolerance: Metabolic Equivalents>4 Pertinent Negatives Pertinent Negatives: No Symptoms of GERD, No Major Cardiovascular Symptoms or Complaints and No Major Pulmonary Symptoms or Complaints Cardiac & Pulmonary Exam Cardiac Exam: Normal S1/S2 Heart Sounds Pulmonary Exam: Clear Bilateral Breath Sounds Implantable Cardiac Device Does patient have a Pacemaker or an ICD?: No Airway Exam Known Difficult Airway: No Mallampati Class: 2 Mouth Opening: Normal (> 3cm) Thyromental Distance: Greater than 3 cm Neck Range of Motion: Full ROM Neck Circumference: Normal Teeth Condition: Normal Dentition (Front permanent veneers) ASA Classification ASA Score: ASA 2 Emergency Case?: No NPO Status NPO Status: NPO Clears >2 hours, Solids >8 hours Anesthesia Plan Resuscitation Status: Full Code Anesthesia Technique: General Anesthesia Airway Planned: Natural Airway Monitors Used: Standard Monitors
[2025-02-22 08:31] VITALS: BMI 24.0
--- NOTE | 2025-02-22 09:07 | BOWEL_PTH ---
PATIENT: Ale Brown LOC: [facility] U#:[id number] AGE/SX: 59/F ROOM: RE02/22/[address]: Bob Caal MD : 1965 BED: DIS: 02/22/2025 SPEC #: [id number] RECD: 02/22/25 13:02 STATUS: CHRIS REQ #: [id number] SILAS: 02/22/25 09:[address]: Bob Caal DEPT: Surgical Specimen RECD BY: Josie Alejo ENTERED: 02/22/25 13:03 SP TYPE: Bowel OTHR DR: Ashley Vidal Tissues: 1 - BIOPSY BOWEL Procedures: GROSS AND MICRO LEVEL 4 Comments: [id number]
[2025-02-22 09:18] VITALS: BP 98/61; PULSE 64; RESP 16; TEMP 36.3; O2SAT 100
--- NOTE | 2025-02-22 09:28 | W.ANESPOSTOP ---
Postoperative Evaluation Date, Time and Location Date Performed: 02/22/25 Time Performed: 09:20 Patient Location: Day Surgery Unit Vital Signs Most Recent Imported Vital Signs: Most Recent Vital Signs Temp Pulse Resp BP Pulse Ox 36.3 C L 64 16 98/61 L 100 02/22/25 09:18 02/22/25 09:18 02/22/25 09:18 02/22/25 09:18 02/22/25 09:18 Pain Score Most Recent Pain Score: Most Recent Pain Score Pain Level 0 02/22/25 09:18 Assessment Mental Status: Awake (Alert & Oriented to Patient Baseline) Airway and Respiratory Function: Patent airway with normal (patient baseline) respiratory exam Cardiovascular Function: Hemodynamically Stable Hydration Status: Adequately Hydrated Nausea & Vomiting: No Nausea or Vomiting Pain: Pt. Denies Any Pain Peripheral Nerve Block: Patient did not receive a nerve block
[2025-02-22 09:50] VITALS: BP 105/64; PULSE 62; RESP 18; TEMP 36.3; O2SAT 100
== END 2025-02-22 10:12 | disposition home or self-care (01) ==
LOC: SUR 07:00
PROVIDERS: PCP Nurse Practitioner Family; Visit Provider Surgery
PROC: 0DJD8ZZ Inspection of Lower Intestinal Tract, Via Natural or Artificial Opening Endoscopic (ICD-10-PCS; CPT 45378; principal; 2025-02-22 08:30)
DX: Z12.11 Encounter for screening for malignant neoplasm of colon (principal); D12.4 Benign neoplasm of descending colon; K57.30 Diverticulosis of large intestine without perforation or abscess without bleeding
CPT/HCPCS: 45380; 88305; J2003; J2704